=== PATIENT | female | born 1960 ===

== ENCOUNTER 2018-10-04 11:47 | Day surgery (SDC) | payer OTHER | END 2018-10-05 20:39 | disposition short-term general hospital (02) | LOC: CATH 11:47 → CCU 15:39 → CATH 10-05 20:39 | DX: I21.4 Non-ST elevation (NSTEMI) myocardial infarction (principal); I25.10 Atherosclerotic heart disease of native coronary artery without angina pectoris; E11.319 Type 2 diabetes mellitus with unspecified diabetic retinopathy without macular edema; E11.39 Type 2 diabetes mellitus with other diabetic ophthalmic complication; E23.2 Diabetes insipidus; E87.1 Hypo-osmolality and hyponatremia; E78.00 Pure hypercholesterolemia, unspecified; F45.9 Somatoform disorder, unspecified; F31.9 Bipolar disorder, unspecified; I10 Essential (primary) hypertension; I95.1 Orthostatic hypotension; I35.1 Nonrheumatic aortic (valve) insufficiency; F41.9 Anxiety disorder, unspecified; Z79.82 Long term (current) use of aspirin; Z79.899 Other long term (current) drug therapy; Z88.0 Allergy status to penicillin; H54.8 Legal blindness, as defined in USA ==